=== PATIENT | male | born 1995 | race Caucasian/White ===

== ENCOUNTER 2018-04-22 21:30 | Inpatient (IN) | payer OTHER ==
[2018-04-22] MEDS ORDERED: Sodium Chloride 0.9% 1,000 ML IV ONE ×2 (22:07→22:18)
[2018-04-22] MEDS ORDERED: Aluminum Hydroxide/Magnesium Hydroxide Susp (30 mL) PO STA (22:07)
[2018-04-22] MEDS ORDERED: Sodium Chloride 0.9% 1,000 ML ONE (22:23)
[2018-04-22 22:25] LABS: BASO % 0.1 % (0.0-2.0); HEMOGLOBIN 15.2 g/dL (12.0-18.0); LYMPH # 1.2 K/uL (1.0-4.3); LYMPH % 6.6 % (20.0-40.0); MEAN CELL VOLUME 81.7 fL (80.0-94.0); MEAN CORPUSCULAR HEMOGLOBIN 28.2 pg (27.0-31.0); MEAN CORPUSCULAR HGB CONC 34.5 g/dL (33.0-37.0); MEAN PLATELET VOLUME 8.8 fL (7.2-11.7); MONO # 0.8 K/uL (0.0-0.8); NEUT # 16.8 K/uL (1.8-7.0); NEUT % 89.3 % (50.0-75.0); PLATELET COUNT 255 K/uL (130-400); RBC 5.39 Mil/uL (4.40-5.90); RED CELL DISTRIBUTION WIDTH 13.1 % (11.5-14.5); WHITE BLOOD COUNT 18.8 K/uL (4.8-10.8)
[2018-04-22] MEDS ORDERED: Iohexol 300 100 ML IJ ONE (22:38)
[2018-04-22 22:45] LABS: ALB/GLOB RATIO 1.9 (1.0-2.1); ALBUMIN 5.1 g/dL (3.5-5.0); ALT/SGPT 32 U/L (21-72); AST/SGOT 31 U/L (17-59); BLOOD UREA NITROGEN 11 mg/dL (9-20); GFR AFRICAN-AMERICAN > 60; GFR NON-AFRICAN AMERICAN > 60; LIPASE 38 U/L (23-300)
--- NOTE | 2018-04-22 22:49 | C.PDOC ---
History Of Present Illness 22 y/o male presents to ED for complaints of abdominal pain associated with SOB , nausea, and one episode of vomiting that began this morning and progressively worsened. Patient describes pain started at periumbilical area and travelled to [facility]. Denies PMHx, PSH, allergies, chest pain or diarrhea. Time Seen by Provider: 04/22/18 22:06 Chief Complaint (Nursing): Abdominal Pain History Per: Patient History/Exam Limitations: no limitations Onset/Duration Of Symptoms: Hrs Current Symptoms Are (Timing): Still Present Location Of Pain/Discomfort: RLQ, Periumbilical Radiation Of Pain To:: None Quality Of Discomfort: "Pain" Associated Symptoms: Nausea, Vomiting. denies: Fever, Chills, Diarrhea, Urinary Symptoms Exacerbating Factors: None Alleviating Factors: None Last Bowel Movement: Today Recent travel outside of the [place]: No Past Medical History Reviewed: Historical Data, Nursing Documentation, Vital Signs Vital Signs: Last Vital Signs Temp 98.9 F 04/23/18 00:31 Pulse 62 04/23/18 00:31 Resp 16 04/23/18 00:31 BP 146/82 04/23/18 00:31 Pulse Ox 99 04/23/18 00:31 - Medical History PMH: No Chronic Diseases Denies: Chronic Kidney Disease Surgical History: No Surg Hx Family History: States: No Known Family Hx - Social History Hx Alcohol Use: No Hx Substance Use: No - Immunization History Hx Tetanus Toxoid Vaccination: No Hx Influenza Vaccination: No Hx Pneumococcal Vaccination: No Review Of Systems Constitutional: Negative for: Fever, Chills Eyes: Negative for: Pain, Vision Change ENT: Negative for: Ear Pain, Ear Discharge Cardiovascular: Negative for: Chest Pain, Palpitations, Orthopnea Respiratory: Positive for: Shortness of Breath. Negative for: Cough Gastrointestinal: Positive for: Nausea, Vomiting, Abdominal Pain. Negative for : Diarrhea, Constipation, Melena Musculoskeletal: Negative for: Neck Pain Skin: Negative for: Rash Neurological: Positive for: Confusion. Negative for: Weakness, Numbness Physical Exam - Physical Exam Appears: Non-toxic, In Acute Distress (Mild), Chronically Ill Skin: Normal Color, Warm, Dry Head: Atraumatic, Normacephalic Eye(s): bilateral: Normal Inspection, PERRL, EOMI Ear(s): Bilateral: Normal Oral Mucosa: Moist Tongue: Normal Appearing Lips: Normal Appearing Teeth: Normal Dentition Throat: Normal, No Erythema, No Exudate, No Drooling, No Mass Neck: Normal ROM, Supple Chest: Symmetrical, No Tenderness Cardiovascular: Rhythm Regular, No Murmur Respiratory: Normal Breath Sounds, No Decreased Breath Sounds, No Rales, No Rhonchi, No Wheezing Gastrointestinal/Abdominal: Soft, Tenderness (RLQ), No Distention, Guarding, No Rebound Extremity: Normal ROM, No Pedal Edema, No Deformity Extremity: Bilateral: Atraumatic, Normal Color And Temperature, Normal ROM Pulses: Left Radial: Normal, Right Radial: Normal Neurological/Psych: Oriented x3, Normal Speech, Normal Motor, Normal Sensation, Normal Reflexes Gait: Steady ED Course And Treatment - Laboratory Results Result Diagrams: 04/22/18 22:18 04/22/18 22:18 O2 Sat by Pulse Oximetry: 100 (RA) Pulse Ox Interpretation: Normal Medical Decision Making Medical Decision Making: Administered pepcid, reglan, zofran and iv fluids. Ordered CT abd & pelvis, blood work, and CXR. Disposition Counseled Patient/Family Regarding: Diagnosis - Disposition Disposition: HOSPITALIZED Disposition Time: 01:09 Condition: FAIR Forms: [facility] (Albanian) - Clinical Impression Clinical Impression: Abdominal pain, Appendicitis - Scribe Statement The provider has reviewed the documentation as recorded by the Reaganibdung Mckeon All medical record entries made by the Reaganibdung were at my direction and personally dictated by me. I have reviewed the chart and agree that the record accurately reflects my personal performance of the history, physical exam, medical decision making, and the department course for this patient. I have also personally directed, reviewed, and agree with the discharge instructions and disposition.
[2018-04-22 23:41] LABS: BANDS 1 % (0-2); LYMPHOCYTE 6 % (20-40); MONOCYTE 4 % (0-10); NEUTROPHIL 89 % (50-75); TOTAL CELLS COUNTED 100
[2018-04-22 23:42] LABS: PLATELET ESTIMATE NORMAL (NORMAL)
[2018-04-23] MEDS ORDERED: Piperacillin/Tazobact 3.375 GM in Sodium Chloride 100 ML IVPB STA (01:06)
[2018-04-23] MEDS ORDERED: Piperacillin/Tazobact 3.375 gm 100 ML IVPB ONE (01:26)
[2018-04-23] MEDS ORDERED: HYDROmorphone 0.5 mg/0.5 ml ISec IVP PRN ×2 (01:35→13:11)
[2018-04-23] MEDS: Dextrose 5%/0.45% NS 1,000 ML IV SCH ×3 (01:49→16:56)
[2018-04-23] MEDS ORDERED: Dextrose 5%-0.225% NS 1,000 ML IV ONE (01:49)
--- NOTE | 2018-04-23 06:30 | CT ---
Date of service: 04/22/2018 PROCEDURE: CT Abdomen and Pelvis with contrast HISTORY: rlq pain COMPARISON: None. TECHNIQUE: Contrast dose: 100 mL Visipaque 320. Axial and reformatted coronal and sagittal CT images of the abdomen and pelvis were obtained after IV contrast administration. Radiation dose: Total exam DLP = 279.79 mGy-cm. This CT exam was performed using one or more of the following dose reduction techniques: Automated exposure control, adjustment of the mA and/or kV according to patient size, and/or use of iterative reconstruction technique. FINDINGS: LOWER THORAX: Unremarkable. LIVER: Unremarkable. No gross lesion or ductal dilatation. GALLBLADDER AND BILE DUCTS: Unremarkable. PANCREAS: Unremarkable. No gross lesion or ductal dilatation. SPLEEN: Unremarkable. ADRENALS: Unremarkable. No mass. KIDNEYS AND URETERS: Unremarkable. No hydronephrosis. No solid mass. VASCULATURE: Unremarkable. No aortic aneurysm. BOWEL: Unremarkable. No obstruction. No gross mural thickening. APPENDIX: The appendix is enlarged surrounding with inflammatory changes consistent with acute uncomplicated appendicitis. PERITONEUM: Unremarkable. No free fluid. No free air. LYMPH NODES: Unremarkable. No enlarged lymph nodes. BLADDER: Unremarkable. REPRODUCTIVE: Unremarkable. BONES: No acute fracture. OTHER FINDINGS: None. IMPRESSION: Findings consistent with acute uncomplicated appendicitis. No other acute pathology noted in the abdomen and pelvis. Preliminary report was submitted by [facility].
[2018-04-23] MEDS: HYDROmorphone 1 mg/ml ISec IVP PRN ×3 (08:23→23:55)
[2018-04-23] MEDS: metroNIDAZOLE IV 500 mg/100 ml 500 MG/100 ML BAG IVPB SCH ×3 (08:43→23:51)
--- NOTE | 2018-04-23 09:27 | RAD ---
Date of service: 04/22/2018 HISTORY: abd pain COMPARISON: No prior. TECHNIQUE: Chest PA and lateral FINDINGS: LUNGS: No active pulmonary disease. PLEURA: No significant pleural effusion identified. No pneumothorax apparent. CARDIOVASCULAR: Normal. OSSEOUS STRUCTURES: No significant abnormalities. VISUALIZED UPPER ABDOMEN: Normal. OTHER FINDINGS: None. IMPRESSION: No acute cardiopulmonary disease appreciated.
[2018-04-23 11:26] LABS: INR 1.3; PROTHROMBIN TIME 13.7 SECONDS (9.7-12.2)
[2018-04-23] MEDS ORDERED: Succinylcholine Chloride 20 mg/ml Syr (5 ml) IV ONE (11:26)
[2018-04-23] MEDS ORDERED: Propofol 10 mg/ml Inj (20 ML) ONE (11:26)
[2018-04-23] MEDS ORDERED: Rocuronium 10 mg/ml (5 ml) ONE (11:26)
[2018-04-23] MEDS ORDERED: Midazolam 2 MG/2 ML VIAL ONE (11:29)
[2018-04-23] MEDS ORDERED: Morphine 4 MG/ML VIAL ONE (12:36)
[2018-04-23] MEDS ORDERED: Neostigmine Methylsulfate 3mg/3ml Syringe IV ONE (13:19)
[2018-04-23] MEDS ORDERED: Lactated Ringer's 500 ML IV ONE (13:35)
--- NOTE | 2018-04-23 23:40 | OP ---
PROCEDURE DATE: 04/23/2018 PREOPERATIVE DIAGNOSIS: Acute appendicitis. POSTOPERATIVE DIAGNOSIS: Acute appendicitis. PROCEDURE PERFORMED: Appendectomy. SURGEON: Miguel Kenney MD ANESTHESIA: General. BLOOD LOSS: 10 mL. POSTOPERATIVE CONDITION: Stable. INDICATIONS FOR SURGERY: A 22-year-old male with acute appendicitis diagnosed by CT scan, taken to the OR on the day of admission for appendectomy. GROSS FINDINGS: The patient had an acutely inflamed appendix. There was no evidence of gangrene or perforation. DESCRIPTION OF PROCEDURE: The patient was taken to the operating room, general anesthesia was administered and was placed in the supine position. A periumbilical cutdown was performed, and a blunt port was inserted at the level of the umbilicus. The abdomen was insufflated with CO2 and under direct vision, left lower quadrant suprapubic ports were placed. The Bernardo had been paced in the patient preoperatively. The appendix was then mobilized, and the base of the appendix was divided using the LigaSure device. The base of the appendix was then divided using an Endo SHAJI. The area was irrigated with saline. The ports were removed and the fascial defect in the umbilical port was closed with heavy Vicryl. Skin was closed with the skin clips. The patient tolerated the procedure well, returned to recovery room in stable condition. Miguel Kenney MD
[2018-04-24 00:46] VITALS: RESP 20; TEMP 98.6
[2018-04-24] MEDS: Dextrose 5%/0.45% NS 1,000 ML IV SCH (02:05)
[2018-04-24] MEDS: HYDROmorphone 1 mg/ml ISec IVP PRN ×2 (05:00→09:38)
[2018-04-24] MEDS: metroNIDAZOLE IV 500 mg/100 ml 500 MG/100 ML BAG IVPB SCH (08:08)
[2018-04-24 08:24] LABS: INR 1.4; PROTHROMBIN TIME 15.8 SECONDS (9.7-12.2)
[2018-04-24 08:28] VITALS: BP 113/67; PULSE 80; O2SAT 100
[2018-04-25] MEDS ORDERED: Pneumococcal 23-Valent Vaccine IM ONE (11:00)
== END 2018-04-24 13:17 | disposition home or self-care (01) | DRG 883 ==
LOC: C.ER 21:30 → C.9E 04-23 01:57 → C.6T 04-23 02:21
PROVIDERS: ADMIT Surgery; ATTEND Surgery
PROC: 0DTJ4ZZ Resection of Appendix, Percutaneous Endoscopic Approach (ICD-10-PCS; principal; 2018-04-23 11:00)
DX: K35.80 Unspecified acute appendicitis (principal)